=== PATIENT | female | born 1955 | race Caucasian/White ===

== ENCOUNTER 2016-09-23 14:27 | Inpatient (IN) | payer BC ==
[~2016-09-23] VITALS: Ht 157.5 cm; Wt 110.0 kg
[2016-09-23 15:12] LABS: HEMATOCRIT 37.6 % (36.0-46.0); MCH 27.6 PG (29.0-34.0); MCHC 36.4 G/DL (30.0-36.0); MCV 75.8 FL (83-99); MEAN PLAT.VOLUME 9.8 uM^3 (9.5-12.4); PLATELET COUNT 307 K/uL (156-360); RBC DIS.WIDTH-CV 14.6 % (11.8-14.6); RBC DIS.WIDTH-SD 39.3 % (39-53); RED BLOOD COUNT 4.96 M/uL (3.80-5.20); WHITE BLOOD COUNT 12.4 K/uL (4.1-10.2)
[2016-09-23 15:20] LABS: CHLORIDE 97 mEq/L (99-109); POTASSIUM 3.8 mEq/L (3.7-5.4); SODIUM 131 mEq/L (136-147)
[2016-09-23 15:23] LABS: EOSINOPHIL (%) 0.2 % (0-5); GLUCOSE 123 mg/dL (70-99); IMMATURE GRANULOCYTE (%) 0.8 % (0.0-0.7); LYMPHOCYTE COUNT 0.6 K/uL (1.0-2.8); MONOCYTE (%) 9.6 % (3-12); MONOCYTE COUNT 1.2 K/uL (0-0.8); NEUTROPHIL (%) 84.1 % (45-76); NEUTROPHIL COUNT 10.4 K/uL (1.8-6.4)
[2016-09-23 15:24] LABS: ANION GAP 16 MEQ/L (2-14)
[2016-09-23 15:25] LABS: TOTAL BILIRUBIN 1.3 mg/dL (0.0-1.0)
[2016-09-23 15:26] LABS: ALKALINE PHOSPHATASE 164 IU/L (3-129); GFR ESTIMATE (CALCULATED) > 59 mL/min/
[2016-09-23 15:27] LABS: UREA NITROGEN (BUN) 22 mg/dL (9-23)
[2016-09-23] MEDS ORDERED: LEVAQUIN750 MG PO (17:23)
[2016-09-23] MEDS ORDERED: ZOLOFT100 MG PO (17:24)
[2016-09-23] MEDS ORDERED: WELLBUTRIN SR100 MG PO (17:25)
[2016-09-23 20:29] VITALS: BP 125/60
[2016-09-23 21:34] LABS: ADD MIUA? YES; BILIRUBIN SMALL; BLOOD MODERATE; COLOR DK YELLOW ((YELLOW)); GLUCOSE (STRIP) NEGATIVE; KETONES TRACE; LEUKOCYTES MODERATE; NITRITE NEGATIVE; PROTEIN (STRIP) TRACE; SPECIFIC GRAVITY 1.028 (1.000-1.030); UROBILINOGEN 0.2 MG/DL (0.2-1.0)
[2016-09-23 21:55] LABS: EPITHELIAL CELLS 1+; MUCUS RARE
[2016-09-23 21:56] LABS: AMORPHOUS URATES CRYSTALS 2+; BACTERIA 1+; CASTS PRESENT /LPF; CRYSTALS PRESENT; HYALINE CASTS 0-5 /LPF; UCUL ADDED? NO
[2016-09-24 00:01] VITALS: BP 114/69
[2016-09-24 06:50] LABS: EOSINOPHIL (%) 1.9 % (0-5); EOSINOPHIL COUNT 0.2 K/uL (0-0.3); HEMATOCRIT 31.4 % (36.0-46.0); IMMATURE GRANULOCYTE (%) 0.8 % (0.0-0.7); IMMATURE GRANULOCYTE COUNT 0.1 K/uL; LYMPHOCYTE COUNT 1.6 K/uL (1.0-2.8); MCH 27.7 PG (29.0-34.0); MCHC 35.4 G/DL (30.0-36.0); MCV 78.3 FL (83-99); MEAN PLAT.VOLUME 10.3 uM^3 (9.5-12.4); MONOCYTE (%) 7.9 % (3-12); MONOCYTE COUNT 0.6 K/uL (0-0.8); NEUTROPHIL (%) 68.8 % (45-76); NEUTROPHIL COUNT 5.4 K/uL (1.8-6.4); PLATELET COUNT 252 K/uL (156-360); RBC DIS.WIDTH-CV 14.6 % (11.8-14.6); RBC DIS.WIDTH-SD 42.1 % (39-53); RED BLOOD COUNT 4.01 M/uL (3.80-5.20)
[2016-09-24 06:51] LABS: WHITE BLOOD COUNT 7.8 K/uL (4.1-10.2)
[2016-09-24 07:06] LABS: ANION GAP 12 MEQ/L (2-14); CHLORIDE 102 MEQ/L (99-109); GFR ESTIMATE (CALCULATED) > 59 mL/min/; GLUCOSE 107 mg/dL (70-99); POTASSIUM 3.5 MEQ/L (3.7-5.4); SAMPLE HEMOLYSIS CHECK 0; SAMPLE ICTERIC CHECK 0; SAMPLE LIPEMIA CHECK 0; SODIUM 135 MEQ/L (136-147); UREA NITROGEN (BUN) 26 mg/dL (9-23)
[2016-09-24 07:56] VITALS: BP 115/66
[2016-09-24 16:03] VITALS: BP 121/56
[2016-09-24 23:39] VITALS: BP 113/65
[2016-09-25 07:56] VITALS: BP 124/70
[2016-09-25 15:39] VITALS: BP 130/65
[2016-09-26 00:03] VITALS: BP 123/72
[2016-09-26 07:38] VITALS: BP 133/71
[2016-09-26 15:38] VITALS: BP 141/64
[2016-09-26 23:04] VITALS: BP 140/63
[2016-09-27 07:51] VITALS: BP 150/84
[2016-09-27 15:25] VITALS: BP 129/69
[2016-09-27 23:55] VITALS: BP 150/85
[2016-09-28 07:48] VITALS: BP 137/69
[2016-09-28 08:29] LABS: HEMATOCRIT 33.6 % (36.0-46.0); MCH 26.6 PG (29.0-34.0); MCV 80.6 FL (83-99); MEAN PLAT.VOLUME 9.9 uM^3 (9.5-12.4); PLATELET COUNT 271 K/uL (156-360); RBC DIS.WIDTH-CV 15.4 % (11.8-14.6); RED BLOOD COUNT 4.17 M/uL (3.80-5.20); WHITE BLOOD COUNT 5.8 K/uL (4.1-10.2)
[2016-09-28 08:39] LABS: ANION GAP 8 MEQ/L (2-14); CHLORIDE 106 MEQ/L (99-109); GFR ESTIMATE (CALCULATED) > 59 mL/min/; GLUCOSE 106 mg/dL (70-99); POTASSIUM 4.1 MEQ/L (3.7-5.4); SAMPLE HEMOLYSIS CHECK 0; SAMPLE ICTERIC CHECK 0; SAMPLE LIPEMIA CHECK 0; SODIUM 142 MEQ/L (136-147); UREA NITROGEN (BUN) 12 mg/dL (9-23)
[2016-09-28] MEDS ORDERED: AUGMENTIN875 MG PO (11:43)
== END 2016-09-28 16:16 | disposition home or self-care (01) | DRG 920 ==
LOC: EME → EDBD 14:27 → EDOF 18:44 → 5SOUTH 18:44
PROVIDERS: Emergency Medicine; Hospitalist; Nurse Practitioner Adult Health
DX: T85.79XA Infection and inflammatory reaction due to other internal prosthetic devices, implants and grafts, initial encounter (principal); K63.2 Fistula of intestine; L03.311 Cellulitis of abdominal wall; Z68.41 Body mass index [BMI] 40.0-44.9, adult; F33.40 Major depressive disorder, recurrent, in remission, unspecified; E87.1 Hypo-osmolality and hyponatremia; T81.9XXA Unspecified complication of procedure, initial encounter; R53.1 Weakness; E66.01 Morbid (severe) obesity due to excess calories; I10 Essential (primary) hypertension; Z88.6 Allergy status to analgesic agent; M19.90 Unspecified osteoarthritis, unspecified site; E11.9 Type 2 diabetes mellitus without complications; Z91.040 Latex allergy status; K21.9 Gastro-esophageal reflux disease without esophagitis
CPT/HCPCS: 74176; 80048; 80053; 80202; 81003; 83605; 85025; 85027; 87040; 87070; 87075; 87076; 87185; 87205; 99281; 99285; J0295; J1644; J2405; J2543; J3010; J3370; J7030; J7050